=== PATIENT | female | born 1955 | race Caucasian/White ===

== ENCOUNTER 2018-09-09 07:57 | Day surgery (SDC) | payer OTHER ==
[~2018-09-09] VITALS: Ht 160 cm; Wt 73.1 kg
[2018-09-09] MEDS ORDERED: OMEPRAZOLE (09:23)
[2018-09-09 09:24] VITALS: Ht 160 cm; Wt 73.1 kg
[2018-09-09 09:50] VITALS: BP 156/77; PULSE 60; RESP 20
[2018-09-09] MEDS ORDERED: FENTAnyl 50 MCG/ML VIAL ONE (10:37)
[2018-09-09] MEDS ORDERED: MIDAZOLAM 1 MG/ML 2 ML INJ ONE ×2 (10:37)
[2018-09-09 10:57] VITALS: BP 127/69; RESP 16
== END 2018-09-09 14:04 | disposition home or self-care (01) ==
LOC: GIL 07:57
PROVIDERS: ATTEND Internal Medicine Gastroenterology
DX: Z12.11 Encounter for screening for malignant neoplasm of colon (principal); K64.8 Other hemorrhoids; K44.9 Diaphragmatic hernia without obstruction or gangrene; K21.9 Gastro-esophageal reflux disease without esophagitis
CPT/HCPCS: 43239; 45378; 88305; 88312; J2250; J3010; Z7610